=== PATIENT | female | born 1950 | race Caucasian/White ===

== ENCOUNTER 2023-07-21 07:37 | Day surgery (SDC) | payer OTHER ==
[2023-07-21 08:23] LABS: Absolute Lymphocytes (CBC) 1.4 K/uL (0.7-4.9); Hematocrit 31.9 % (36.0-45.0); MCV 93.4 fL (80-100); MPV 8.7 fL (7.6-11.3); Platelets 462 thou/uL (152-406); Protime INR 1.1; RBC Red Blood Cell Count 3.41 M/uL (3.86-4.86)
[2023-07-21 09:21] VITALS: BMI 25.4
[2023-07-21 12:58] VITALS: BP 136/71; TEMP 97.3; O2SAT 99
--- NOTE | 2023-07-21 13:30 | RAD REPORT ---
EXAM DESCRIPTION: US - Paracentesis Proc Guidance - 07/21/2023 10:21 am CLINICAL HISTORY: ASCITES Ascites COMPARISON: No comparisons FINDINGS: Informed consent was obtained and time-out was performed. Patient's abdomen was prepped and draped in the usual sterile fashion. 1% lidocaine was used for loca l anesthetic purposes. A small skin incision was made. A paracentesis catheter was guided into the peroneal cavity under son ographic guidance. A small amount of fluid was sent for requested lab studies. A large volume paracentesis was performed . A total of 4.5 liters of ascitic fluid were drained. The patient tolerated the procedure well. Patient was administered IV albumin per protocol following the procedure. IMPRESSION: Successful ultrasound-guided diagnostic and therapeutic paracentesis.
== END 2023-07-21 11:50 | disposition home or self-care (01) ==
LOC: DS 07:37
PROVIDERS: ATTEND Internal Medicine Gastroenterology
DX: R18.8 Other ascites (principal); R74.8 Abnormal levels of other serum enzymes
CPT/HCPCS: 36415; 49083; 85025; 85610

== ENCOUNTER 2023-07-31 09:48 | Day surgery (SDC) | payer OTHER ==
[2023-07-31 10:55] VITALS: BMI 23.6
[2023-07-31] MEDS ORDERED: ALBUMIN HUMAN 25% 100 ML IV ONE (12:01)
[2023-07-31 15:05] VITALS: BP 147/62; TEMP 97.5; O2SAT 100
--- NOTE | 2023-08-01 10:49 | RAD REPORT ---
EXAM DESCRIPTION: US - Paracentesis Proc Guidance - 07/31/2023 1:09 pm CLINICAL HISTORY: ascites FINDINGS: The risks, benefits and alternatives to the procedure were explained to the patient and in formed consent obtained. The skin and deeper tissues were anesthetized with Lidocaine. Under sonographic guidance an 8 [place] catheter was placed into the right lower quadrant. 2.2 liters of yellow fluid removed. Fluid sent to the lab. The patient experienced no immediate complication. IMPRESSION: Paracentesis
== END 2023-07-31 14:10 | disposition home or self-care (01) ==
LOC: DS 09:48
PROVIDERS: ATTEND Internal Medicine Gastroenterology
DX: R18.8 Other ascites (principal)
CPT/HCPCS: 88304; 96365; 49083; P9047

== ENCOUNTER → 2023-08-09 | Emergency (ER) | payer OTHER ==
[~2023-08-09] MED LIST: DIAZEPAM 10 MG/2 ML INJ SYRINGE ONE; NA CHLORIDE 0.9% 1,000 ML ONE
--- OUTSIDE RECORDS SUMMARY | 2023-08-09 09:00 | XMS REPORT | Continuity of Care Document ---
Author Name Unknown Address [address] [facility] [address] th[address] Address [address] [facility] [address] [place] [address] Care Team Providers Care Heat Treat Inspector Name Role Phone Leisa Bains Attending Clinician Unavailable Esteban Wright Attending Clinician Unavailable Irais Bender Attending Clinician Unavailable [email or web address]_S Attending Clinician Unavaila ble Alyson-Mbayo_A_AH Attending Clinician Unavailable [email or web address]_S Admitting Clinician Unavaila ble Alyson-Mbayo_A_AH Admitting Clinician Unavailable Payers Payer Name Policy Type Policy Number Effective Date Expirati on Date Source [employer] (MEDICARE REPLACEMENT PPO) [id number] 2023 00:00:00 [facility] Susana PALOMINO (MEDICARE REPLACEMENT/[employer] GE - HMO) [id number] 2019 00:00:00 Encounters Start Date/Time End Date/Time Encounter Type Admission Type Attending Clinicians Care Facility Care Department Encounter ID Source 2023-05-05 08:42:00 Outpatient Leisa Bains [facility] [id number] [facility] 2022-09-05 11:32:01 [facility] [id number] [facility] 2022-03-07 10:52:01 Outpatient Leisa Bains [facility] [id number] [facility] 2021-08-27 13:12:02 [facility] [id number] [facility] 2021-07-21 14:13:19 Outpatient [facility] [id number] [facility] 2021-07-21 14:12:45 Outpatient Leisa Bains [facility] [id number] [facility] 2021-07-21 14:12:04 Outpatient Leisa Bains [facility] [id number] [facility] 2021-07-21 14:06:55 Outpatient Leisa Bains [facility] [id number] [facility] 2021-07-21 12:37:10 Outpatient Leisa Bains [facility] [id number] [facility] 2021-07-21 12:16:57 Outpatient Leisa Bains [facility] [id number] [facility] 2021-07-21 12:11:08 Outpatient Esteban Wright [facility] [id number] [facility] 2021-07-21 12:06:49 Outpatient Esteban Wright [facility] [id number] [facility] 2021-07-21 11:59:46 Outpatient Esteban Wright [facility] [id number] [facility] 2021-07-21 11:13:24 Outpatient Irais Bender [facility] [id number] [facility] 2023-08-09 00:00:00 2023-08-09 00:00:00 Outpatient GC_GCBZW_Ka diyala_S PRIV PRIV [id number] [facility] 2023-08-08 00:00:00 2023-08-08 00:00:00 Outpatient GC_GCBZW_Ka diyala_S PRIV PRIV [id number] [facility] 2019-08-14 07:26:00 2019-08-14 07:26:00 Outpatient Alyson-Mbayo _A_ VFP VFP [id number] [facility] 2019-08-14 07:26:00 2019-08-14 07:26:00 Outpatient Alyson-Mbayo _A_AH VFP VFP [id number] [facility]
--- NOTE | 2023-08-09 09:51 | RAD REPORT ---
EXAM DESCRIPTION: CT - CTHCSPWOC - 08/09/2023 9:36 am CLINICAL HISTORY: TRAUMA COMPARISON: No comparisons TECHNIQUE: Axial thin cut noncontrast CT images of the head were obtained. Axial thin cut noncontrast CT images of the cervical spine were obtained. Multiplanar reformatted images were generated and reviewed. All CT scans are performed using dose optimization technique as appropriate and may include automated exposure control or mA/KV adjustment according to patient size. FINDINGS: CT HEAD WITHOUT CONTRAST: No acute hemorrhage, hydrocephalus or extra-axial collection is identified.No areas of brain edema or midline shift. The paranasal sinuses and mastoids are clear.The calvarium is intact. Mild left frontal scalp swellin g or small hematoma. CT CERVICAL SPINE WITHOUT CONTRAST: No fracture or subluxation.Scattered mild degenerative changes of the endplates and facet articulatio ns, with [id number] degrees of neural foraminal narrowing bilaterally at C4-5, C5-6, and C6-7.N o prevertebral soft tissues swelling is identified. IMPRESSION: No acute traumatic intracranial or cervical spine findings. Mild left frontal scalp swelling or small hematoma. Degenerative changes of the cervical spine as above.
[2023-08-09 10:21] LABS: Absolute Lymphocytes (CBC) 1.4 K/uL (0.7-4.9); Hematocrit 32.2 % (36.0-45.0); Lymphocytes % 15.4 % (15.3-44.8); MCV 90.6 fL (80-100); MPV 7.5 fL (7.6-11.3); Platelets 690 thou/uL (152-406); RBC Red Blood Cell Count 3.56 M/uL (3.86-4.86)
[2023-08-09 10:42] LABS: Albumin 2.5 g/dL (3.4-5.0); Bilirubin Direct 0.1 mg/dL (0-0.2); Bilirubin Indirect, Calculated 0.2 mg/dL (0.2-0.8); Bilirubin Total 0.3 mg/dL (0.2-1.0); Magnesium 2.1 mg/dL (1.6-2.4); Potassium 3.7 mEq/L (3.5-5.1); Protein, Total 6.5 g/dL (6.4-8.2); Troponin High Sensitivity 4.8 pg/mL (<58.9)
--- NOTE | 2023-08-09 10:48 | ER ---
Nurse's Notes [facility] Name: eMlania Love Age: 73 yrs Sex: Female : 1950 Arrival Date: 08/09/2023 Time: 08:57 Bed 17 Private MD: Leisa Bains Diagnosis: Syncope;Contusion of forehead Presentation: 08/09 09:06 Ebola Screen: Patient denies travel to an Ebola-affected area in the 21 days before ll1 illness onset. 09:06 Method Of Arrival: Wheelchair ll1 09:12 Chief complaint: Patient states: Syncopal episode at 0500, doing colonoscopy prep. + ll1 head injury with N/V. R knee abrasion. Coronavirus screen: Client denies travel out of the [place] in the last 14 days. At this time, the client does not indicate any symptoms associated with coronavirus-19. Mechanism of Injury: resulted from a fall. Initial Sepsis Screen: Does the patient meet any 2 criteria? No. Patient's initial sepsis screen is negative. Does the patient have a suspected source of infection? No. Patient's initial sepsis screen is negative. Risk Assessment: Do you want to hurt yourself or someone else? Patient reports no desire to harm self or others. Onset of symptoms was August 09, 2023. 09:12 Acuity: PHYLLIS 2 ll1 Triage Assessment: 09:30 General: Appears in no apparent distress. comfortable, Behavior is calm, cooperative. db Neuro: Reports a syncopal episode. Neuro: Level of Consciousness is awake, alert, obeys commands, Oriented to person, place, time, situation. Historical: - Allergies: 09:25 lactose (bulk); ll1 09:25 Codeine; ll1 09:25 Aldactone; ll1 - PMHx: 10:09 Anemia; osteopenia; ll1 - PSHx: 10:09 section; ll1 - Immunization history:: Adult Immunizations up to date. - Social history:: Smoking status: Patient denies any tobacco usage or history of. - Family history:: not pertinent. Screenin:56 [facility] ED Fall Risk Assessment (Adult) History of falling in the last 3 months, db including since admission No falls in past 3 months (0 pts) Confusion or Disorientation No (0 pts) Intoxicated or Sedated No (0 pts) Impaired Gait No (0 pts) Mobility Assist Device Used No (0 pt) Altered Elimination No (0 pt) Score/Fall Risk Level 0 - 2 = Low Risk Oriented to surroundings, Maintained a safe environment. Abuse screen: Denies threats or abuse. Denies injuries from another. Nutritional screening: No deficits noted. Tuberculosis screening: No symptoms or risk factors identified. Assessment: 09:15 Reassessment: Patient appears in no apparent distress at this time. Patient and/or db family updated on plan of care and expected duration. Pain level reassessed. Patient is alert, oriented x 3, equal unlabored respirations, skin warm/dry/pink. General: Appears in no apparent distress. comfortable, Behavior is calm, cooperative. 10:18 Reassessment: Patient appears in no apparent distress at this time. Patient and/or db family updated on plan of care and expected duration. Pain level reassessed. Patient is alert, oriented x 3, equal unlabored respirations, skin warm/dry/pink. General: Appears in no apparent distress. comfortable, Behavior is calm, cooperative. Pain: Denies pain. Neuro: Level of Consciousness is awake, alert, obeys commands, Oriented to person, place, time, situation. Respiratory: Airway is patent Respiratory effort is even, unlabored, Respiratory pattern is regular, symmetrical. GI: Abdomen is round distended. 11:26 Reassessment: Patient appears in no apparent distress at this time. Patient and/or db family updated on plan of care and expected duration. Pain level reassessed. Patient is alert, oriented x 3, equal unlabored respirations, skin warm/dry/pink. Patient states feeling better. Vital Signs: 09:00 BP 151 / 59; Pulse 89; Resp 18; Pulse Ox 100% on R/A; db 09:12 BP 151 / 59; Pulse 87; Resp 17; Temp 97.3; Pulse Ox 98% on R/A; Weight 56.7 kg; Height ll1 5 ft. 2 in. ; 09:30 BP 134 / 61; Pulse 79; Resp 18; Pulse Ox 100% on R/A; db 10:30 BP 148 / 64; Pulse 80; Resp 18; Pulse Ox 100% on R/A; db 11:00 BP 144 / 68; Pulse 79; Resp 18; Pulse Ox 100% on R/A; db 09:12 Body Mass Index 22.86 (56.70 kg, 157.48 cm) ll1 Rachel Coma Score: 09:12 Eye Response: spontaneous(4). Motor Response: obeys commands(6). Verbal Response: ll1 oriented(5). Total: 15. ED Course: 09:00 Patient arrived in ED. mr 09:00 Dean Bainsa is Private Physician. mr 09:05 Brock Crump MD is Attending Physician. rt 09:06 Arm band placed on Patient placed in an exam room, on a stretcher. ll1 09:13 Triage completed. ll1 09:22 Juliana Khan, RN is Primary Nurse. db 09:37 CT Head C Spine In Process Unspecified. EDMS 10:15 Inserted saline lock: 22 gauge in right antecubital area, using aseptic technique. db Blood collected. 10:56 Patient has correct armband on for positive identification. Call light in reach. Side db rails up X 1. Client placed on continuous cardiac and pulse oximetry monitoring. NIBP monitoring applied. Warm blanket given. 10:57 No provider procedures requiring assistance completed. db 11:26 Provided Education on: DISCHARGE. db 11:26 IV discontinued, intact, bleeding controlled, No redness/swelling at site. db Administered Medications: 10:15 Drug: NS 0.9% IV 1000 ml IV at 1 bolus Per protocol; 1000 mL bolus Route: IV; Rate: 1 db bolus; Site: right antecubital; 10:53 Follow up: Response: No adverse reaction; IV Status: Completed infusion; IV Intake: db 1000ml Medication: 09:15 VIS not applicable for this client. db Intake: 10:53 IV: 1000ml; Total: 1000ml. db Outcome: 10:48 Discharge ordered by . rt 11:26 Discharged to home ambulatory, db 11:26 Condition: stable 11:26 Discharge instructions given to patient, family, Instructed on discharge instructions, follow up and referral plans. 11:27 Patient left the ED. db Signatures: Dispatcher [employer] EDFL Martita Garibay, Reg Reg mr WuTrina, RN RN ll1 Juliana Khan, RN RN db Brock Crump MD MD rt Corrections: (The following items were deleted from the chart) 10:09 09:12 BP 151 / 59; Pulse 87bpm; Resp 17bpm; Pulse Ox 98% RA; Temp 97.3F; ll1 ll1
--- NOTE | 2023-08-09 10:48 | EDPHYS ---
Physician Documentation [facility] Name: Melania Love Age: 73 yrs Sex: Female : 1950 Arrival Date: 08/09/2023 Time: 08:57 Bed 17 Private MD: Leisa Bains ED Physician Brock Crump HPI: 08/09 09:26 This 73 yrs old Female presents to ER via Wheelchair with complaints of Passed Out rt Prior To Arrival, Head Injury-Adult. 09:26 Patient presents to the ED following a syncopal event. Patient scheduled for a rt screening colonoscopy today, was doing a bowel prep. Patient was on the toilet, when she states that she blacked out, no preceding symptoms. She woke up and had return to baseline mental status. She does report having contusion on her forehead but denies any pain at this time. States that she feels normal presently. Denies other acute complaints, symptoms are moderate in severity, no other aggravating or elevating factors.. Historical: - Allergies: 09:25 lactose (bulk); ll1 09:25 Codeine; ll1 09:25 Aldactone; ll1 - PMHx: 10:09 Anemia; osteopenia; ll1 - PSHx: 10:09 section; ll1 - Immunization history:: Adult Immunizations up to date. - Social history:: Smoking status: Patient denies any tobacco usage or history of. - Family history:: not pertinent. ROS: 09:26 Constitutional: Negative for fever, chills, and weight loss, Neck: Negative for injury, rt pain, and swelling, Cardiovascular: Negative for chest pain, palpitations, and edema, Respiratory: Negative for shortness of breath, cough, wheezing, and pleuritic chest pain, Abdomen/GI: Negative for abdominal pain, nausea, vomiting, diarrhea, and constipation, MS/Extremity: Negative for injury and deformity, Skin: Negative for injury, rash, and discoloration, Psych: Negative for depression, anxiety, suicide ideation, homicidal ideation, and hallucinations, 09:26 Neuro: Positive for syncope, Negative for altered mental status, Exam: :26 Constitutional: This is a well developed, well nourished patient who is awake, alert, rt and in no acute distress. Chest/axilla: Normal chest wall appearance and motion. Nontender with no deformity. No lesions are appreciated. Cardiovascular: Regular rate and rhythm with a normal S1 and S2. No gallops, murmurs, or rubs. Normal PMI, no JVD. No pulse deficits. Respiratory: Lungs have equal breath sounds bilaterally, clear to auscultation and percussion. No rales, rhonchi or wheezes noted. No increased work of breathing, no retractions or nasal flaring. Abdomen/GI: Soft, non-tender, with normal bowel sounds. No distension or tympany. No guarding or rebound. No evidence of tenderness throughout. Skin: Warm, dry with normal turgor. Normal color with no rashes, no lesions, and no evidence of cellulitis. MS/ Extremity: Pulses equal, no cyanosis. Neurovascular intact. Full, normal range of motion. Neuro: Awake and alert, GCS 15, oriented to person, place, time, and situation. Cranial nerves II-XII grossly intact. Motor strength 5/5 in all extremities. Sensory grossly intact. Cerebellar exam normal. Normal gait. Psych: Awake, alert, with orientation to person, place and time. Behavior, mood, and affect are within normal limits. 09:26 Head/face: Contusion on left side of forehead, no other external signs of trauma. 09:26 Neck: No posterior cervical midline tenderness, Vital Signs: 09:00 BP 151 / 59; Pulse 89; Resp 18; Pulse Ox 100% on R/A; db 09:12 BP 151 / 59; Pulse 87; Resp 17; Temp 97.3; Pulse Ox 98% on R/A; Weight 56.7 kg; Height ll1 5 ft. 2 in. ; 09:30 BP 134 / 61; Pulse 79; Resp 18; Pulse Ox 100% on R/A; db 10:30 BP 148 / 64; Pulse 80; Resp 18; Pulse Ox 100% on R/A; db 11:00 BP 144 / 68; Pulse 79; Resp 18; Pulse Ox 100% on R/A; db 09:12 Body Mass Index 22.86 (56.70 kg, 157.48 cm) ll1 [place] Coma Score: 09:12 Eye Response: spontaneous(4). Motor Response: obeys commands(6). Verbal Response: ll1 oriented(5). Total: 15. MDM: 09:07 Patient medically screened. rt 10:48 Differential Diagnosis: Dehydration vasovagal episode, electrolyte disturbance, anemia. rt Data reviewed: vital signs, nurses notes. Consideration of Admission/Observation Escalation of care including admission/observation considered. Stable labs, symptoms have resolved, EKG is normal, patient not likely to benefit from admission.. I considered the following discharge prescriptions or medication management in the emergency department Medications were administered in the Emergency Department. See MAR. Independent interpretation of the following test(s) in the Emergency Department CT Scan: My interpretation is No intracranial hemorrhage seen on interpretation of CT scan images. Counseling: I had a detailed discussion with the patient and/or guardian regarding the historical points, exam findings, and any diagnostic results supporting the discharge/admit diagnosis, lab results, radiology results, the need for outpatient follow up, to return to the emergency department if symptoms worsen or persist or if there are any questions or concerns that arise at home. 08/09 09:14 Order name: Basic Metabolic Panel; Complete Time: 10:43 rt 08/09 09:14 Order name: CBC with Diff; Complete Time: 10:43 rt 08/09 09:14 Order name: LFT's; Complete Time: 10:43 rt 08/09 09:14 Order name: Magnesium; Complete Time: 10:43 rt 08/09 09:14 Order name: Troponin HS; Complete Time: 10:43 rt 08/09 09:14 Order name: CT Head C Spine; Complete Time: 09:58 rt 08/09 09:14 Order name: EKG; Complete Time: 09:15 rt 08/09 09:14 Order name: Cardiac monitoring; Complete Time: 10:17 rt 08/09 09:14 Order name: EKG - Nurse/Tech; Complete Time: 10:17 rt 08/09 09:14 Order name: IV Saline Lock; Complete Time: 10:17 rt 08/09 09:14 Order name: Labs collected and sent; Complete Time: 10:17 rt 08/09 09:14 Order name: O2 Per Protocol; Complete Time: 10:17 rt 08/09 09:14 Order name: O2 Sat Monitoring; Complete Time: 10:17 rt Administered Medications: 10:15 Drug: NS 0.9% IV 1000 ml IV at 1 bolus Per protocol; 1000 mL bolus Route: IV; Rate: 1 db bolus; Site: right antecubital; 10:53 Follow up: Response: No adverse reaction; IV Status: Completed infusion; IV Intake: db 1000ml Disposition Summary: 08/09/23 10:48 Discharge Ordered Notes: Location: Home rt Problem: new rt Symptoms: have improved rt Condition: Stable rt Diagnosis - Syncope rt - Contusion of forehead rt Followup: rt - With: Private Physician - When: Today - Reason: Discharge Instructions: - Discharge Summary Sheet rt - Facial or Scalp Contusion rt - Syncope rt Forms: - Medication Reconciliation Form rt - Thank You Letter rt - Antibiotic Education rt - Prescription Opioid Use rt - Patient Portal Instructions rt - Leadership Thank You Letter rt Signatures: Dispatcher [employer] Trina Hernandez RN RN ll1 Juliana Khan RN RN db Brock Crump MD MD rt
[2023-08-09 11:47] VITALS: BP 144/68; TEMP 97.3; O2SAT 100
--- NOTE | 2023-08-10 14:42 | EKG ---
Test Date: 2023-08-09 Test Time: 10:05:35 Multi Purpose Machine Operator: GALINDO MEASUREMENT RESULTS: Intervals: Rate: 79 HI: 156 QRSD: 76 QT: 400 QTc: 458 [place]: P: 75 HI: 156 QRS: 91 T: 69 INTERPRETIVE STATEMENTS: Normal sinus rhythm Low voltage QRS Borderline ECG No previous ECG available for comparison Electronically Signed On 08-10-23 14:40:52 BIOLOGY MANAGER by Tony Diane
== END ==
LOC: ER 08:57
DX: R55 Syncope and collapse (principal); S00.83XA Contusion of other part of head, initial encounter; Z88.5 Allergy status to narcotic agent; Z88.8 Allergy status to other drugs, medicaments and biological substances; Z91.011 Allergy to milk products
CPT/HCPCS: 85025; 80048; 36415; 83735; 80076; 84484; 70450; 72125; J3360; J7030

== ENCOUNTER 2023-08-11 10:20 | Day surgery (SDC) | payer OTHER ==
[2023-08-11 12:15] VITALS: O2SAT 100; BMI 3249.8
[2023-08-11 12:54] VITALS: BP 138/55; TEMP 97.4
--- NOTE | 2023-08-11 12:54 | RAD REPORT ---
EXAM DESCRIPTION: US - Abdomen Exam Limited - 08/11/2023 12:29 pm CLINICAL HISTORY: Ascites COMPARISON: July 31, 2023 FINDINGS: The amount of ascites is less than on July 31, 2023. After discussing this with the patient and it was agreed that the patient will return August 03 for the paracentesis
== END 2023-08-11 12:39 | disposition home or self-care (01) ==
LOC: DS 10:20
PROVIDERS: ATTEND Obstetrics & Gynecology
DX: R18.8 Other ascites (principal); R18.0 Malignant ascites; Z53.8 Procedure and treatment not carried out for other reasons
CPT/HCPCS: 36415; 76705; 85730

== ENCOUNTER 2023-08-14 08:12 | Day surgery (SDC) | payer OTHER ==
[2023-08-14] MEDS ORDERED: ALBUMIN HUMAN 25% 200 ML IV ONE (09:56)
[2023-08-14 09:59] VITALS: BMI 22.8
--- NOTE | 2023-08-14 10:06 | RAD REPORT ---
EXAM DESCRIPTION: US - Paracentesis Proc Guidance - 08/14/2023 9:50 am CLINICAL HISTORY: Carcinomatosis. Ascites FINDINGS: The risks, benefits and alternatives to the procedure were explained to the patient and in formed consent obtained. The skin and deeper tissues were anesthetized with Lidocaine. Under sonographic guidance an 8 Malay catheter was placed into the right lower quadrant. 600 milliliters of yellow fluid removed. Fluid sen t to the lab. The patient experienced no immediate complication. IMPRESSION: Paracentesis
[2023-08-14 11:26] VITALS: BP 144/61; TEMP 97.3; O2SAT 100
== END 2023-08-14 11:05 | disposition home or self-care (01) ==
LOC: DS 08:12
PROVIDERS: ATTEND Obstetrics & Gynecology
DX: R18.8 Other ascites (principal); R18.0 Malignant ascites
CPT/HCPCS: 96365; 49083; P9047